=== PATIENT | male | born 1975 | race Caucasian/White ===

== ENCOUNTER 2022-10-09 15:04 | Outpatient (CLI) | payer OTHER, SELFPAY ==
--- NOTE | 2022-10-09 15:21 | XR_ITS ---
WS: [id number] Right foot, 2 views, 10/09/2022 Clinical Data: RT FOOT PAIN Comparison: None. Findings: No fractures or dislocations are seen. No bone destruction or erosion is noted. The joint spaces and soft tissues are normal. XR/XR foot RT 2V [id number] Impression: Negative right foot.
== END 2022-10-09 15:05 | disposition home or self-care (01) ==
PROVIDERS: PCP Nurse Practitioner Family; Visit Provider Nurse Practitioner Family
DX: M79.671 Pain in right foot (principal)
CPT/HCPCS: 73620